=== PATIENT | female | born 1975 | race Two or more races ===

== ENCOUNTER 2017-04-01 03:08 | Emergency (ER) | payer OTHER ==
[2017-04-01 03:15] VITALS: BP 110/69; PULSE 83; RESP 18; TEMP 98.4; O2SAT 97
--- NOTE | 2017-04-01 03:17 | EDPHY ---
H & P Stated Complaint: chest tightness and sob /anxiety HPI/ROS: HPI CHIEF COMPLAINT: [ ] HISTORY OF PRESENT ILLNESS: [Need 4: Location, Duration, Severity, Quality, Context, Timing Modifying Factors, Associated S&S] Past Medical History: Past Surgical History: Social History: Family History: ROS REVIEW OF SYSTEMS: A comprehensive 10 point review of systems is otherwise negative aside from elements mentioned in the history of present illness. Exam Constitutional triage nursing summary reviewed, vital signs reviewed, awake/ alert. Eyes normal conjunctivae and sclera, EOMI, PERRLA. HENT normal inspection, atraumatic, moist mucus membranes, no epistaxis, neck supple/ no meningismus, no raccoon eyes. Respiratory clear to auscultation bilaterally, normal breath sounds, no respiratory distress, no wheezing. Cardiovascular rate normal, regular rhythm, no murmur, no edema, distal pulses normal. Gastrointestinal soft, non-tender, no rebound, no guarding, normal bowel sounds, no distension, no pulsatile mass. Genitourinary no CVA tenderness. Musculoskeletal no midline vertebral tenderness, full range of motion, no calf swelling, no tenderness of extremities, no meningismus, good pulses, neurovascularly intact. Skin pink, warm, & dry, no rash, skin atraumatic. Neurologic awake, alert and oriented x 3, AAOx3, moves all 4 extremities equally, motor intact, sensory intact, CN II-XII intact, normal cerebellar, normal vision, normal speech. Psychiatric normal mood/affect. Heme/Lymph/Immune no lymphadenopathy. Differential Diagnosis: Medical Decision Making: Re-evaluation: Source: Patient - Personal History LMP (Females 10-55): 15-21 Days Ago Current Tetanus/Diphtheria Vaccine: Yes Current Tetanus Diphtheria and Acellular Pertussis (TDAP): Yes - Medical/Surgical History Hx Asthma: No Hx Chronic Respiratory Disease: No Hx Diabetes: No Hx Cardiac Disease: No Hx Renal Disease: No Hx Cirrhosis: No Hx Alcoholism: No Hx HIV/AIDS: No Hx Splenectomy or Spleen Trauma: No Other PMH: c section. - Social History Smoking Status: Current every day smoker Constitutional: Initial Vital Signs Temperature (C) 36.9 C 04/01/17 03:11 Heart Rate 83 04/01/17 03:11 Respiratory Rate 18 04/01/17 03:11 Blood Pressure 110/69 04/01/17 03:11 O2 Sat (%) 97 04/01/17 03:11 O2 Delivery Mode Room Air Allergies/Adverse Reactions: morphine Allergy (Verified 04/01/17 03:10) Home Medications: Medication Instructions Recorded NK [No Known Home Meds] 04/01/17 Departure - Departure Referrals: NONE *PRIMARY CARE P,. [Primary Care Provider] - As per Instructions
== END 2017-04-01 03:30 | disposition left against medical advice (07) ==
DX: Z53.21 Procedure and treatment not carried out due to patient leaving prior to being seen by health care provider (principal)

== ENCOUNTER 2018-02-16 10:32 | Emergency (ER) | payer MEDICAID, OTHER ==
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
[2018-02-16 12:53] VITALS: BP 114/71
== END 2018-02-16 12:52 | disposition home or self-care (01) ==
LOC: EDUNIT#
PROC: 0HQMXZZ Repair Right Foot Skin, External Approach (ICD-10-PCS; principal; 2018-02-16)
DX: S91.311A Laceration without foreign body, right foot, initial encounter (principal); F17.200 Nicotine dependence, unspecified, uncomplicated; V18.0XXA Pedal cycle driver injured in noncollision transport accident in nontraffic accident, initial encounter; Y99.8 Other external cause status; Y93.89 Activity, other specified

== ENCOUNTER 2018-10-28 22:15 | Emergency (ER) | payer MEDICAID ==
[2018-10-28] MEDS ORDERED: IPRATROPIUM/ALBUTEROL 3 ML DEYVIAL IH ONE (22:24)
--- NOTE | 2018-10-28 23:41 | EDPHY ---
H & P Stated Complaint: Cough Time Seen by Provider: 10/28/18 22:16 HPI/ROS: Chief complaint: Cold symptoms History of present illness: This is a 43-year-old female brought to the emergency department by EMS for cold symptoms. Patient reports she has been sick for the last week and a half. She reports tactile fevers, sore throat, persistent cough and trouble breathing. No report of headache, neck pain, body aches or rash. She does currently smoke cigarettes. She does snort meth although it has been over a week since she last used. Her was recently diagnosed with pneumonia. EMS provided her with an albuterol nebulizer. - Personal History LMP (Females 10-55): 15-21 Days Ago Current Tetanus/Diphtheria Vaccine: Yes Current Tetanus Diphtheria and Acellular Pertussis (TDAP): Yes - Medical/Surgical History Hx Asthma: No Hx Chronic Respiratory Disease: No Hx Diabetes: No Hx Cardiac Disease: No Hx Renal Disease: No Hx Cirrhosis: No Hx Alcoholism: No Hx HIV/AIDS: No Hx Splenectomy or Spleen Trauma: No Other PMH: c section. - Social History Smoking Status: Current every day smoker - Physical Exam Exam: General Appearance: Alert, nontoxic Eyes: Pupils equal and round no pallor or injection. ENT, Mouth: Tympanic membranes, external auditory canals, external ears and surrounding soft tissue including over the mastoids are unremarkable. Nasopharynx is not injected. There is no rhinorrhea. Oropharynx is mildly injected. There is no edema. There is no exudate. There is no asymmetry. The uvula is midline. No elevation of the tongue. There is no hoarseness, no drooling, no trismus, no stridor. Respiratory: Patient is speaking in full sentences. No use of accessory muscles. Diffuse rhonchi with occasional expiratory wheezing. No rales. Cardiovascular: Regular rate and rhythm. Neurological: Alert and oriented x4. No meningismus. Skin: Warm and dry, no rashes. Musculoskeletal: Neck is supple nontender. Extremities are symmetrical, full range of motion. Psychiatric: Patient is oriented X 3, there is no agitation. Constitutional: Initial Vital Signs Temperature (C) 36.7 C 10/28/18 22:20 Heart Rate 95 10/28/18 22:20 Respiratory Rate 18 10/28/18 22:20 Blood Pressure 113/85 H 10/28/18 22:20 O2 Sat (%) 98 10/28/18 22:20 O2 Delivery Mode Room Air O2 (L/minute) 2 Allergies/Adverse Reactions: morphine Allergy (Verified 05/10/18 13:56) Home Medications: Medication Instructions Recorded Amoxicillin/Clavulanate Pot 875 mg PO BID #14 tab 10/28/18 [Augmentin 875 MG TAB (*)] Benzonatate [Tessalon Pearles (RX)] 200 mg PO TID #20 cap 10/28/18 Medical Decision Making - Diagnostics Imaging Results: Imaging Impressions Chest X-Ray 10/28/18 22:24 Impression: Mild chronic airways disease. No pneumonia or effusion. Imaging: I viewed and interpreted images myself ED Course/Re-evaluation: Patient seen under the supervision of my secondary supervising physician Dr. Eleuterio Barillas. Patient presents with a week and a half of cold symptoms. She is nontoxic. She is afebrile and vital signs are stable. She has diffuse rhonchi and some wheezing noted in the lung harding. Flu swabs negative. Chest x-ray without focal infiltrate. She has been given a DuoNeb with significant improvement in symptoms. Lung sounds have improved. I will start her on Augmentin for suspected bronchitis, she does have comorbidities including smoking and meth use. I will give her a dose of Decadron as I suspect an underlying lung disorder i.e COPD. She will be further treated with an inhaler and Tessalon Perles for symptomatic care. Home care including hydration and rest was discussed. She is asked to follow up with her primary care doctor for recheck. She is given strict return precautions. She has voiced understanding and agreement with plan. Differential Diagnosis: Included but not limited to URI, viral syndrome, bronchitis, pneumonia - Data Points Laboratory Results: 10/28/18 22:30 Nasal Influenza A PCR NEGATIVE FOR FLU A (NEGATIVE) Nasal Influenza B PCR NEGATIVE FOR FLU B (NEGATIVE) Medications Given: Discontinued Medications Albuterol/Ipratropium (Duoneb) 3 ml IH EDNOW ONE Stop: 10/28/18 22:25 Last Admin: 10/28/18 22:35 Dose: 3 ml Amoxicillin/Clavulanate Potassium (Augmentin 875mg) 875 mg PO EDNOW ONE PRN Reason: Protocol Stop: 10/28/18 23:43 Last Admin: 10/28/18 23:55 Dose: 875 mg Dexamethasone (Decadron Injection) 10 mg PO EDNOW ONE Stop: 10/28/18 23:47 Last Admin: 10/28/18 23:56 Dose: 10 mg Departure - Departure Disposition: Home, Routine, Self-Care Clinical Impression: Bronchitis Condition: Good Instructions: Benzonatate (By mouth), Amoxicillin/Clavulanate Potassium (By mouth), Acute Bronchitis (ED) Additional Instructions: Follow-up with a primary care doctor for continued evaluation and care Take antibiotics as prescribed until finished Use inhaler every 4-6 hours as directed Drink plenty of fluids to stay hydrated If symptoms worsen or new symptoms develop return to the emergency room for recheck Referrals: NONE *PRIMARY CARE P,. [Primary Care Provider] - As per Instructions [facility],. [Clinic] - As per Instructions Prescriptions: Amoxicillin/Clavulanate Pot [Augmentin 875 MG TAB (*)] 875 mg PO BID #14 tab Benzonatate [Tessalon Pearles (RX)] 200 mg PO TID #20 cap
[2018-10-28] MEDS ORDERED: AMOXICILLIN/CLAVULANATE POT 875/125 MG TAB PO ONE (23:42)
[2018-10-28] MEDS ORDERED: DEXAMETHASONE 10 MG/ML VIAL PO ONE (23:46)
[2018-10-29 00:56] VITALS: BP 118/70
== END 2018-10-29 01:14 | disposition home or self-care (01) ==
LOC: EDUNIT#
DX: J42 Unspecified chronic bronchitis (principal); F17.200 Nicotine dependence, unspecified, uncomplicated
CPT/HCPCS: J1100